=== PATIENT | female | born 1980 | race Asian ===

== ENCOUNTER 2022-12-27 12:09 | Emergency (ER) | payer OTHER, SELFPAY ==
[2022-12-27 12:17] VITALS: BP 113/73; PULSE 78; RESP 16; TEMP 36.1; O2SAT 99; BMI 30.4
--- NOTE | 2022-12-27 12:37 | DI.CT.S_ITS ---
PROCEDURE: CT HEAD/BRAIN WO CON INDICATIONS: severe forrester resolved TECHNIQUE: Noncontrast 4.5 mm thick angled axial sections acquired from the foramen magnum to the vertex, with coronal and sagittal reformats. For radiation dose reduction, the following was used: automated exposure control, adjustment of mA and/or kV according to patient size. COMPARISON: None. FINDINGS: Image quality: Excellent. CSF spaces: Basal cisterns are patent. No extra-axial fluid collections. Ventricles are normal in size and shape. Brain: No midline shift. No intracranial masses or hemorrhage. Stephen-white matter interface is normal. Skull and face: Calvarium and visualized facial bones are intact, without suspicious lesions. Sinuses: Visualized sinuses demonstrate trace right maxillary mucosal thickening. IMPRESSION: 1. No acute intracranial process. Dictated by: Belkis Whalen M.D. on 12/27/2022 at 13:44 Approved by: Belkis Whalen M.D. on 12/27/2022 at 13:45
--- NOTE | 2022-12-27 12:37 | DI.CT.S_ITS ---
PROCEDURE: CT ANGIO HEAD AND NECK INDICATIONS: severe forrester resolved TECHNIQUE: After the administration of intravenous contrast, 1 mm thick sections acquired from the aortic arch through the [place] of [place]. Post-contrast 4.5 mm thick sections then re-acquired from the foramen magnum to the vertex. 3-dimensional qgfkunq-kszrkczkr-owgukqvbhx (MIP) and/or volume rendering reformats were acquired of the central intracranial vasculature and neck separately. For radiation dose reduction, the following was used: automated exposure control, adjustment of mA and/or kV according to patient size. COMPARISON: None. FINDINGS: Image quality: Excellent. BRAIN: CSF spaces: Ventricles are normal in size and shape. Basal cisterns are patent. No extra-axial fluid collections. Brain: No midline shift. No intracranial bleeds or masses. Stephen-white matter interface appears intact. Skull and face: Calvarium and facial bones appear intact, without suspicious lesions. Orbits appear normal. Sinuses: Sinuses and mastoids are clear. HEAD CT ANGIOGRAPHY: Anterior circulation: Intracranial internal carotid arteries are normal in size and flow. The flow within the paired anterior cerebral arteries is normal and symmetric. The flow within the middle cerebral arteries is normal and symmetric. The anterior communicating artery is seen. No aneurysms are seen. Posterior circulation: There is a slight left vertebral artery dominance. Visualized portions of the vertebral arteries demonstrate normal caliber, and join to form a normal appearing basilar artery. Flow within the posterior cerebral arteries is normal and symmetric. No aneurysms are seen. NECK CT ANGIOGRAPHY: Carotid system: The great vessels demonstrate a conventional anatomy as they arise from the aortic arch. The origins of the common carotid arteries appear patent. The common carotid arteries demonstrate normal caliber and courses. The bifurcation regions are both widely patent. The internal carotid arteries demonstrate normal calibers and courses. Posterior circulation: The origins of the vertebral arteries both appear widely patent. The more superior extracranial portions of both vertebral arteries also demonstrate normal courses and calibers. They join to form a normal appearing basilar artery. Soft tissues: Visualized neck soft tissues demonstrate no suspicious abnormalities. Bones: No suspicious bony lesions. Visualized cervical spine appears normally aligned. IMPRESSION: 1. No acute intracranial process. 2. No areas of hemodynamically significant stenosis, vascular occlusion or aneurysmal dilation within the anterior circulation. 3. No areas of hemodynamically significant stenosis, vascular occlusion or aneurysmal dilation within the neck vasculature. Any quantitative measurements of stenosis were performed using NASCET criteria. Dictated by: Belkis Whalen M.D. on 12/27/2022 at 14:22 Approved by: Belkis Whalen M.D. on 12/27/2022 at 14:25
[2022-12-27 14:35] LABS: Add Manual Diff / Slide Review NO; Basophils Absolute Auto 0 /uL (0-100); Basophils Percent Auto 0.4 % (0-2); Eosinophils Absolute Auto 100 /uL (0-450); Eosinophils Percent Auto 0.7 % (2-4); Hematocrit 43.8 % (36-46); Hemoglobin 14.7 g/dL (12.0-16.0); Lymphocytes Absolute Auto 2100 /uL (1100-4500); Mean Corpuscular HGB Conc 33.5 % (30-36); Mean Corpuscular Hemoglobin 29.4 PG (26-34); Mean Corpuscular Volume 87.9 fL (80-100); Monocytes Absolute Auto 400 /uL (0-900); Monocytes Percent Auto 5.5 % (3-14); Neutrophils Absolute Auto 5200 /uL (1500-7000); Neutrophils Percent Auto 66.4 % (50-75); Platelet Count 260 X10^3/uL (150-400); Red Blood Cell Count 4.99 X10^6/uL (4.0-5.2); Red Cell Distribution Width 13.2 % (11.6-14.8); White Blood Cell Count 7.8 X10^3/uL (4.5-11.0)
[2022-12-27 14:37] LABS: Prothrombin Time 11.8 SECONDS (10.1-12.7)
[2022-12-27 14:40] LABS: PTT Partial Thromboplastin Tim 39 SECONDS (26-36)
[2022-12-27 14:43] LABS: Alanine Aminotransferase 22 IU/L (<35); Albumin 4.7 g/dL (3.5-5.0); Albumin Globulin Ratio 1.2 (1.0-2.8); Alkaline Phosphatase 40 U/L (38-126); Aspartate Aminotransferase 29 IU/L (14-36); Blood Urea Nitrogen 12 mg/dL (7-17); Calcium 8.8 mg/dL (8.4-10.2); Carbon Dioxide 27 mmol/L (22-32); Chloride 101 mmol/L (98-107); Estimated Glomerular Filt Rate > 60 mL/min (>60); Globulin 3.8 g/dL (1.7-4.1); Glucose 105 mg/dL (70-100); HEMOLYSIS < 15 (0-50); Sodium 137 mmol/L (137-145); Total Protein 8.5 g/dL (6.3-8.2)
[2022-12-27 15:45] VITALS: BP 132/82; PULSE 66; O2SAT 97
[2022-12-27 16:00] VITALS: BP 125/61; PULSE 66; RESP 21; O2SAT 98
[2022-12-27 16:30] VITALS: BP 122/79; PULSE 67; RESP 15; O2SAT 96
[2022-12-27 16:37] VITALS: BP 119/81; PULSE 65; RESP 16; O2SAT 98
[2022-12-27 16:43] VITALS: BP 119/81; PULSE 61; RESP 17; O2SAT 98
--- NOTE | 2022-12-28 21:09 | ED_ITS ---
HPI - Dizziness <Dom Mcneal PA-C - Last Filed: 12/28/22 21:16> General Chief Complaint: Dizziness Stated Complaint: dizziness sudden severe headache Time Seen by Provider: 12/27/22 12:37 History of Present Illness HPI Narrative: 42-year-old female presents to the ED with 1 day of dizziness, headache. Patient states that she awoke this morning feeling extremely dizzy which she describes as the room spinning around her. Patient had a sudden-onset headache a little while later, that then spontaneously resolved after a short period of time. Patient also endorses nausea along with the dizziness. Patient denies fever, chills, neck pain, neck stiffness, abdominal pain, chest pain, shortness of breath, lightheadedness, syncope. Related Data Previous Rx's Medication Instructions Recorded meclizine 25 mg tablet 25 mg PO BID PRN dizziness #14 tabs 12/27/22 Allergies Allergy/AdvReac Type Severity Reaction Status Date / Time No Known Drug Allergies Allergy Verified 12/27/22 12:20 Review of Systems <Dom Mcneal PA-C - Last Filed: 12/28/22 21:16> Review of Systems ROS Unobtainable: All systems reviewed & are unremarkable except as noted in HPI and below Constitutional Constitutional: Denies chills, Denies fatigue, Denies fever(s), Denies frequent falls, Reports headache(s), Denies lethargy and Denies weakness Eyes Eyes: Denies change in vision, Denies eye discharge, Denies irritation and Denies loss of vision ENT Ears, Nose, Mouth, and Throat: Denies change in voice, Reports dizziness, Repor ts headache(s), Denies neck pain, Denies sore throat and Denies throat swelling Cardiovascular Cardiovascular: Denies chest pain, Denies irregular heart rhythm, Denies lightheadedness, Denies palpitations, Denies dyspnea, Denies dyspnea on exertion and Denies orthopnea Respiratory Respiratory: Denies cough, Denies dyspnea, Denies dyspnea on exertion and Denies wheezing Gastrointestinal Gastrointestinal: Denies abdominal pain, Denies change in bowel habits, Denies diarrhea, Reports nausea and Denies vomiting Genitourinary Genitourinary: Denies hematuria, Denies flank pain, Denies urinary incontinence and Denies urinary urgency Musculoskeletal Musculoskeletal: Denies back pain, Denies muscle weakness, Denies neck pain, Denies numbness and Denies tingling Integumentary/Breasts Skin/Breast: Denies pruritus, Denies erythema, Denies rash and Denies wounds Neurologic Neurologic: Denies behavioral changes, Denies confusion, Reports dizziness, Denies frequent falls, Reports headache(s), Denies loss of vision, Denies numbness, Denies tingling and Denies weakness Psychiatric Psychiatric: Denies anxiety, Denies behavioral changes, Denies confusion, Denies depression, Denies homicidal ideation and Denies suicidal ideation Endocrine Endocrine: Denies fatigue, Denies flushing and Denies palpitations Hematologic/Lymphatic Hematologic/Lymphatic: Denies easy bruising Allergic/Immunologic Allergic/Immunologic: Denies urticaria, Denies throat swelling and Denies wheezing Patient History <Dom Mcneal PA-C - Last Filed: 12/28/22 21:16> Social History Smoking Status: Never smoker Smoking Status: Never smoker alcohol intake frequency: a few times a month Substance Use Type: does not use Exam <Dom Mcneal PA-C - Last Filed: 12/28/22 21:16> Narrative Exam Narrative: Const General:?cooperative, healthy appearing and comfortable [facility] Head:?normal to inspection Ears:?hearing grossly normal bilaterally Nose:?external nose normal Face and sinus:?normal facial exam and sinuses nontender Mouth:?oral mucosae normal Throat:?posterior oropharynx normal Eyes General:?appearance normal, both eyes and all related structures Neck Neck:?normal visual inspection and no lymphadenopathy noted Resp Effort & Inspection:?normal respiratory effort Auscultation:?clear to auscultation bilaterally Cardio Rate:?regular rate Rhythm:?regular rhythm Neuro General:?patient alert, patient awake and patient oriented x3; PERRLA; gait is normal; CN 1 through 12 intact bilaterally; negative Romberg; negative pronator drift; negative [id number]-[id number]; negative [id number] Initial Vital Signs Initial Vital Signs: Vital Signs Temperature 96.9 F L 12/27/22 12:17 Pulse Rate 78 12/27/22 12:17 Respiratory Rate 16 12/27/22 12:17 Blood Pressure 113/73 12/27/22 12:17 Pulse Oximetry 99 12/27/22 12:17 Oxygen Delivery Method Room Air 12/27/22 12:17 <Odalis Roger Stock DO - Last Filed: 12/29/22 07:23> Initial Vital Signs Initial Vital Signs: Vital Signs Temperature 96.9 F L 12/27/22 12:17 Pulse Rate 78 12/27/22 12:17 Respiratory Rate 16 12/27/22 12:17 Blood Pressure 113/73 12/27/22 12:17 Pulse Oximetry 99 12/27/22 12:17 Oxygen Delivery Method Room Air 12/27/22 12:17 MDM - Dizziness <Dom Mcneal PA-C - Last Filed: 12/28/22 21:16> Lab Data 12/27/22 14:22 12/27/22 14:22 Labs: Lab Results 12/27/22 12/27/22 12/27/22 Range/Units 14:22 14:22 14:22 WBC 7.8 (4.5-11.0) X10^3/uL RBC 4.99 (4.0-5.2) X10^6/uL Hgb 14.7 (12.0-16.0) g/dL Hct 43.8 (36-46) % MCV 87.9 (80-100) fL MCH 29.4 (26-34) PG MCHC 33.5 (30-36) % RDW 13.2 (11.6-14.8) % Plt Count 260 (150-400) X10^3/uL Neut % (Auto) 66.4 (50-75) % Lymph % (Auto) 27.0 (25-40) % [place] % (Auto) 5.5 (3-14) % Eos % (Auto) 0.7 L (2-4) % Baso % (Auto) 0.4 (0-2) % Neut # (Auto) 5200 (1384-2320) /uL Lymph # (Auto) 2100 (4579-4450) /uL [place] # (Auto) 400 (0-900) /uL Eos # (Auto) 100 (0-450) /uL Baso # (Auto) 0 (0-100) /uL PT 11.8 (10.1-12.7) SECONDS INR 1.0 (0.9-1.3) APTT 39 H (26-36) SECONDS Sodium 137 (137-145) mmol/L Potassium 4.0 (3.4-5.1) mmol/L Chloride 101 (98-107) mmol/L Carbon Dioxide 27 (22-32) mmol/L BUN 12 (7-17) mg/dL Creatinine 0.63 (0.52-1.04) mg/dL Estimated GFR > 60 (>60) mL/min BUN/Creatinine Ratio 19.0 (6-22) Glucose 105 H (70-100) mg/dL Calcium 8.8 (8.4-10.2) mg/dL Total Bilirubin 1.0 (0.2-1.3) mg/dL AST 29 (14-36) IU/L ALT 22 (<35) IU/L Alkaline Phosphatase 40 (38-126) U/L Total Protein 8.5 H (6.3-8.2) g/dL Albumin 4.7 (3.5-5.0) g/dL Globulin 3.8 (1.7-4.1) g/dL Albumin/Globulin Ratio 1.2 (1.0-2.8) MDM Narrative Medical decision making narrative: 42-year-old female presents to the ED with 1 day of dizziness, headache. Concern for BPPV, primary headache. History is most consistent with BPPV and primary headache. Physical exam is reassuring. Patient is neurologically intact. Patient states she has no symptoms in the ED, and therefore no medications were given in the ED. CT head and CTA head and neck were performed to rule out intracranial hemorrhage. No acute findings on CT, CTA. Patient given a prescription for meclizine to use if her dizziness recurs. Patient agrees to follow-up with her PCP as soon as possible. ED return precautions wer e discussed with patient. Patient verbalized understanding. Medical records reviewed: Yes <Odalis Stock DO - Last Filed: 12/29/22 07:23> Lab Data Labs: Lab Results 12/27/22 12/27/22 12/27/22 Range/Units 14:22 14:22 14:22 WBC 7.8 (4.5-11.0) X10^3/uL RBC 4.99 (4.0-5.2) X10^6/uL Hgb 14.7 (12.0-16.0) g/dL Hct 43.8 (36-46) % MCV 87.9 (80-100) fL MCH 29.4 (26-34) PG MCHC 33.5 (30-36) % RDW 13.2 (11.6-14.8) % Plt Count 260 (150-400) X10^3/uL Neut % (Auto) 66.4 (50-75) % Lymph % (Auto) 27.0 (25-40) % [place] % (Auto) 5.5 (3-14) % Eos % (Auto) 0.7 L (2-4) % Baso % (Auto) 0.4 (0-2) % Neut # (Auto) 5200 (9839-9451) /uL Lymph # (Auto) 2100 (5663-0348) /uL [place] # (Auto) 400 (0-900) /uL Eos # (Auto) 100 (0-450) /uL Baso # (Auto) 0 (0-100) /uL PT 11.8 (10.1-12.7) SECONDS INR 1.0 (0.9-1.3) APTT 39 H (26-36) SECONDS Sodium 137 (137-145) mmol/L Potassium 4.0 (3.4-5.1) mmol/L Chloride 101 (98-107) mmol/L Carbon Dioxide 27 (22-32) mmol/L BUN 12 (7-17) mg/dL Creatinine 0.63 (0.52-1.04) mg/dL Estimated GFR > 60 (>60) mL/min BUN/Creatinine Ratio 19.0 (6-22) Glucose 105 H (70-100) mg/dL Calcium 8.8 (8.4-10.2) mg/dL Total Bilirubin 1.0 (0.2-1.3) mg/dL AST 29 (14-36) IU/L ALT 22 (<35) IU/L Alkaline Phosphatase 40 (38-126) U/L Total Protein 8.5 H (6.3-8.2) g/dL Albumin 4.7 (3.5-5.0) g/dL Globulin 3.8 (1.7-4.1) g/dL Albumin/Globulin Ratio 1.2 (1.0-2.8) Discharge Plan Departure Patient Disposition: Home Clinical Impression: Benign paroxysmal positional vertigo Instructions: DI for Vertigo Activity Restrictions/Additional Instructions: You were evaluated in the ED today for dizziness, nausea, headache. Your labs, CT head, CTA head and neck were without acute findings. Your symptoms are likely due to benign positional peripheral vertigo. Please follow-up with your PCP for further evaluation and treatment such as physical therapy. You may take meclizine if you vertigo recurs. Return to the ED if your symptoms worsen, you are persistently vomiting, you experience numbness, tingling, weakness. Prescriptions: New meclizine 25 mg tablet 25 mg PO BID PRN (Reason: dizziness) Qty: 14 0RF Referrals: Miscellaneous,Doctor, [Primary Care Provider] - Stand Alone Forms: Patient Portal/API <Odalis Stock DO - Last Filed: 12/29/22 07:23> Cosign ED Attending Pennyature Attestation: I was immediately available in the department for consultation. Documentation has been reviewed.
== END 2022-12-27 16:44 | disposition home or self-care (01) ==
PROVIDERS: Emergency Medicine; Emergency Provider Student in an Organized Health Care Education/Training Program
DX: H81.10 Benign paroxysmal vertigo, unspecified ear (principal); R51.9 Headache, unspecified
CPT/HCPCS: 36415; 70450; 70496; 70498; 80053; 85025; 85610; 85730; 99283; 99284; Q9967